=== PATIENT | female | born 1970 | race Two or more races ===

== ENCOUNTER 2017-09-06 14:10 | Emergency (ER) | payer OTHER ==
[~2017-09-06] VITALS: Ht 162.6 cm; Wt 63.5 kg
[~2017-09-06 14:10] MED LIST: OMEPRAZOLE20 M1 PO; RANITIDINE HCL300 MG PO
== END 2017-09-06 18:47 | disposition home or self-care (01) ==
LOC: ER 14:10
DX: N39.0 Urinary tract infection, site not specified (principal)

== ENCOUNTER → 2017-12-20 | Emergency (ER) | payer OTHER ==
[~2017-12-20] VITALS: Ht 162.6 cm; Wt 63.5 kg
== END | disposition left against medical advice (07) ==
LOC: ER 18:16
DX: Z53.20 Procedure and treatment not carried out because of patient's decision for unspecified reasons (principal)

== ENCOUNTER 2020-05-28 19:49 | Emergency (ER) | payer OTHER ==
[~2020-05-28] VITALS: Ht 162.6 cm; Wt 63.5 kg
== END 2020-05-28 22:05 | disposition home or self-care (01) ==
LOC: ER 19:49
DX: R07.89 Other chest pain (principal)